=== PATIENT | male | born 1995 | race Caucasian/White ===

== ENCOUNTER 2023-10-01 08:29 | Emergency (ER) | payer SELFPAY ==
[2023-10-01] MEDS: Sodium Chloride 0.9% 1,000 ML IV SCH (09:30)
[2023-10-01] MEDS: Sodium Chloride 0.9% 10 ML Syringe FLUSH PRN (09:30)
[2023-10-01] MEDS: Ketorolac 30 MG/ML SDV IVPUSH ONE (09:39)
[2023-10-01] MEDS: methylPREDNISolone Sodium Succinate 125 MG/2 ML SDV IVPUSH ONE (09:41)
[2023-10-01] MEDS: Ondansetron 4 MG/2 ML SDV IVPUSH ONE (09:44)
[2023-10-01 09:46] LABS: BASOPHILS PERCENT AUTO 0.3 % (0.0-1.0); EOSINOPHILS ABSOLUTE AUTO 0.2 K/mm3 (0.0-0.4); EOSINOPHILS PERCENT AUTO 2.7 % (0.0-6.0); HEMATOCRIT 41.6 % (42.0-52.0); HEMOGLOBIN 14.1 gm/dl (14.0-18.0); IMMATURE GRAN ABSOLUTE AUTO 0.04 K/mm3 (0.00-0.05); IMMATURE GRAN PERCENT AUTO 0.6 % (0.0-0.4); LYMPHOCYTES ABSOLUTE AUTO 1.2 K/mm3 (1.0-4.8); LYMPHOCYTES PERCENT AUTO 18.7 % (24.0-44.0); MEAN CORPUSCULAR HEMOGLOBIN 30.7 pg (28.0-32.0); MEAN CORPUSCULAR HGB CONC 33.9 g/dl (32.0-36.0); MEAN CORPUSCULAR VOLUME 90.6 fl (83.0-99.0); MONOCYTES ABSOLUTE AUTO 0.7 K/mm3 (0.0-0.8); MONOCYTES PERCENT AUTO 11.1 % (0.0-8.0); NEUTROPHILS ABSOLUTE AUTO 4.3 K/mm3 (1.8-7.7); NEUTROPHILS PERCENT AUTO 66.6 % (41.0-71.0); PLATELET COUNT,PLT 161 K/mm3 (150-400); RED BLOOD CELL COUNT 4.59 M/mm3 (4.52-5.90); WHITE BLOOD CELL COUNT,WBC 6.38 K/mm3 (3.9-11.3)
[2023-10-01 10:04] LABS: A/G RATIO 0.9 (1-2); ALBUMIN 3.3 g/dl (3.4-5.0); ANION GAP 15.6 (5-15); BILIRUBIN TOTAL 0.4 mg/dL (0.2-1.0); BUN/CREATININE RATIO 10.8 (14-18); C-REACTIVE PROTEIN 9.39 mg/dL (<0.30); CALCIUM 8.8 mg/dL (8.5-10.1); CREATININE 1.2 mg/dL (0.7-1.3); EST CRCL DRUG DOSING (CG) 100.23 mL/min; POTASSIUM,K 3.6 mEq/L (3.5-5.1); PROTEIN TOTAL,TP 6.9 g/dl (6.4-8.2)
[2023-10-01 10:06] LABS: SLIDE REVIEW ABNORMAL SMEAR
[2023-10-01] MEDS: cefTRIAXone 2 GM in Sodium Chloride 0.9% 100 ML IV ONE (10:36)
== END 2023-10-01 11:04 | disposition home or self-care (01) ==
LOC: JD.ED 08:29
DX: J03.80 Acute tonsillitis due to other specified organisms (principal); B96.89 Other specified bacterial agents as the cause of diseases classified elsewhere; Z88.0 Allergy status to penicillin
CPT/HCPCS: 36415; 80053; 83605; 85025; 86140; 86308; 87651; 96361; 96365; 96375; 99284; J0696; J1885; J2405; J2930; J3490; J7030; 99283